=== PATIENT | female | born 1980 | race Caucasian/White ===

== ENCOUNTER 2017-04-20 12:23 | Emergency (ER) | payer MEDICARE | END 2017-04-20 13:15 | disposition home or self-care (01) | LOC: ER 12:23 | DX: N39.0 Urinary tract infection, site not specified (principal); M54.41 Lumbago with sciatica, right side; K21.9 Gastro-esophageal reflux disease without esophagitis; Z90.49 Acquired absence of other specified parts of digestive tract ==